=== PATIENT | male | born 1975 | race Caucasian/White ===

== ENCOUNTER 2020-08-29 13:41 | Emergency (ER) | payer MEDICARE, OTHER ==
[~2020-08-29] VITALS: Ht 170.2 cm; Wt 82.0 kg
[2020-08-29 13:52] VITALS: BP 119/76
--- NOTE | 2020-08-29 15:09 | RAD ---
Left foot 3 views: Reason for examination: Ventral foot pain over navicular. No acute fracture or dislocation is seen. The bone density is normal. No abnormal periosteal reaction is seen. Joint spaces are maintained. IMPRESSION: No acute bony abnormality evident in the left foot. Electronically signed by: Yu Aaron MD (08/29/2020 3:06 PM) [facility]
--- NOTE | 2020-08-29 15:38 | PHYS DOC ---
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 Alcohol Use: None Adult General Chief Complaint Chief Complaint: FOOT INJURY PAIN HPI HPI Patient is a 45-year-old male who presents for left foot pain. Pain occurred after trying to ambulate up steps and hit ventral portion of midfoot on step. Patient reported immediate pain, swelling and ecchymosis. He has not been able to fully weight-bear since that time. Presents today due to worsened soft tissue edema and ecchymosis, he is concerned for a bony abnormality. Denies any changes in motor or sensory function, no other focal neurologic deficits noted Review of Systems Review of Systems Fourteen body systems of review of systems have been reviewed. See HPI for pertinent positives and negative responses, other griffin all other systems are negative, non-pertinent or non-contributory Allergies Allergies Allergies Coded Allergies Type Severity Reaction Last Updated Verified No Known Drug Allergies 08/29/20 No Physical Exam Physical Exam Constitutional: Well developed, well nourished, no acute distress, non-toxic appearance. HENT: Normocephalic, atraumatic, bilateral external ears normal, oropharynx moist, no oral exudates, nose normal. Eyes: PERRLA, EOMI, conjunctiva normal, no discharge. Neck: Normal range of motion, no tenderness, supple, no stridor. Cardiovascular: Heart rate regular, sinus rhythm, no murmurs rubs or gallops Lungs & Thorax: Bilateral breath sounds clear to auscultation Abdomen: Bowel sounds normal, soft, no tenderness, no masses, no pulsatile masses. Nonsurgical abdomen, no peritoneal signs Skin: Warm, dry, no erythema, no rash. Back: No tenderness, no CVA tenderness. Extremities: No cyanosis, no clubbing, ROM intact. Left lower extremity with obvious swelling and ecchymosis to midfoot, [place] ankle rule positive as patient has point tenderness over navicular bone without any other concerning findings. 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 Psychologic: Affect normal, judgement normal, mood normal. Current Patient Data Vital Signs Vital Signs Date Time Temp Pulse Resp B/P (MAP) Pulse Ox O2 Delivery O2 Flow Rate FiO2 08/29/20 13:52 97.7 72 16 119/76 (90) 98 EKG EKG [] Radiology/Procedures Radiology/Procedures PROCEDURE: FOOT LEFT 3V Left foot 3 views: Reason for examination: Ventral foot pain over navicular. No acute fracture or dislocation is seen. The bone density is normal. No abnormal periosteal reaction is seen. Joint spaces are maintained. IMPRESSION: No acute bony abnormality evident in the left foot. Electronically signed by: Yu Diana MD (08/29/2020 3:06 PM) [facility] Heart Score Risk Factors: Risk Factors: DM, Current or recent (<one month) smoker, HTN, HLP, family history of CAD, obesity. Risk Scores: Risk Factors: DM, Current or recent (<one month) smoker, HTN, HLP, family history of CAD, obesity. Course & Med Decision Making Course & Med Decision Making Pertinent Labs and Imaging studies reviewed. (See chart for details) Discussed most likely diagnosis of foot contusion with patient, described likely self-limiting course of recovery Advised continued supportive care with rice protocol with consideration for outpatient physical therapy as indicated by PCP Strict return precautions were discussed with good understanding by patient, all questions and concerns addressed prior to ER departure in stable condition Dragon Disclaimer Dragon Disclaimer This electronic medical record was generated, in whole or in part, using a voice recognition dictation system. Departure Departure: Impression: Primary Impression: Contusion of left foot Disposition: 01 DC HOME SELF CARE/HOMELESS Condition: STABLE Referrals: LAINE RODRIGUEZ (PCP) Patient Instructions: Foot Contusion, RICE - Routine Care for Injuries Additional Instructions: As discussed prior to ER departure, please call your primary care physician first thing Monday morning to schedule outpatient follow-up in upcoming 2 to 10 days time Please continue supportive care utilizing rice protocol and Tylenol as needed for pain You have any concerning signs or symptoms at represent prior to outpatient follow-up please do not hesitate to come back for repeat examination It was a pleasure to take care of you and I wish you a speedy recovery CONNIE HWANG DO Aug 29, 2020 15:38
== END 2020-08-29 15:49 | disposition home or self-care (01) ==
LOC: ER 13:41
DX: S90.32XA Contusion of left foot, initial encounter (principal); R60.0 Localized edema; Z98.890 Other specified postprocedural states; W18.09XA Striking against other object with subsequent fall, initial encounter; Y93.89 Activity, other specified; Y92.89 Other specified places as the place of occurrence of the external cause; Y99.8 Other external cause status
CPT/HCPCS: 73630; 99284